=== PATIENT | female | born 1945 | race Caucasian/White ===

== ENCOUNTER → 2018-09-13 | Day surgery (SDC) | payer MEDICARE ==
[~2018-09-13] VITALS: Ht 154.9 cm; Wt 84.8 kg
[~2018-09-13] MED LIST: ANTIVERT/2525 MG PO; ASPI-COR81 M1 PO; ASPIRIN325 MG PO; COZAAR50 M1 PO; DIPYRIDAMOLE25 MG PO; DULCOLAX STOOL100 MG PO; FISH OIL CONC1000 M1 PO; FLUTICASON0.05 MG/Ac NS; LOPRESSOR50 MG PO; MULTIVITAMIN FO1 CAP PO; OMEPRAZOLE D/R20 MG PO; PLAVIX75 M1 PO; SIMVASTATIN10 MG PO; SYNTHROID0.025 MG PO; VICO75300 PO; VITAMIN D1000 IU PO; XANAX0.5 MG PO; ZYRTEC10 MG PO
--- NOTE | ~2018-09-13 | O ---
[place], [place] OPERATIVE NOTE NAME: ABDIAS MADERA UNIT #: [id number] ROOM: DOCTOR: JIMMY CASON MD BIRTHDATE: [birth year] DOS: 09/13/2018 HISTORY OF PRESENT ILLNESS: This is a 73-year-old patient who has presented with a chief complaint of guaiac positivity, undergoing investigation. The patient is on aspirin and Plavix, with cardiac valve prosthesis. PAST SURGICAL HISTORY: Cholecystectomy, aortic valve prosthesis, x 2. PAST MEDICAL HISTORY: Hypertension, hypothyroidism. ALLERGIES: GABAPENTIN, SULFA, AND CARMELA INHIBITORS. FAMILY HISTORY: Noncontributory. SOCIAL HISTORY: Nonsmoker, nonalcohol consumer. PROCEDURE: Today's procedure part of investigation is panendoscopy and colonoscopy. PREMEDICATION: Propofol. SCOPE: Olympus forward-viewing gastroscope Q10 video. REPORT: After putting the patient in left lateral position and application of lubricant to the scope, the scope was introduced, thereafter under direct visualization advanced through the length of esophagus without difficulty. Gastric pouch was entered, mild gastritis was noticed. This was mostly concentrated toward the antrum, which is more moderate gastritis. Biopsy obtained. Duodenal bulb, second and third part within normal limits. Antral biopsy was obtained. Air was suctioned out. The patient was extubated, tolerated the procedure well. IMPRESSION: Gastritis. PLAN AND DISCUSSION: The patient is already on omeprazole 20 mg daily. The patient on the other hand has been on fish oil, Plavix, and aspirin 325 mg daily. This could have contributed to her guaiac positivity possibly. We are going to proceed with colonoscopic evaluation today. INDICATIONS: The patient has presented with guaiac positivity, undergoing investigation. PROCEDURE #2: Today's procedure part of investigation is colonoscopy plus polypectomy plus photographic series. PREMEDICATION: Propofol. SCOPE: Olympus forward-viewing colonoscope 10L video. REPORT: After putting the patient in left lateral position and application of [place], [place] OPERATIVE NOTE NAME: ABDIAS MADERA UNIT #: [id number] ROOM: [facility] [birth year] lubricant to the scope, the scope was introduced, thereafter under direct visualization advanced through the length of colon without difficulty. Base of the cecum explored, appendiceal orifice identified, ileocecal valve was defined. Tortuosity of colon, particularly at the left colon was appreciated. Scope was gradually withdrawn from ascending, transverse, descending colon. A polypoid lesion in high rectal pouch with piecemeal polypectomy was removed. Air was suctioned out. The patient was extubated, tolerated the procedure well. IMPRESSION: Tortuous colon, otherwise high rectal pouch sessile polyp status post piecemeal polypectomy. PLAN AND DISCUSSION: The patient may start Plavix and aspirin and fish oil from tomorrow. No acute source for blood loss, guaiac positivity was noticed. Most likely, presence of the fish oil, aspirin and Plavix has led to superficial mucosal abrasions and guaiac positivity has been noticed in view of the gastritis. Continuation of omeprazole. Continuation of all the medications. Regular diet. Otherwise, follow up routinely with you in office p.r.n., visit with us in GI Clinic. Thank you very much indeed for your kind referral. JIMMY CASON MD CM:OPRECORD:OPERATIVE NOTE [id number] JIMMY CASON MD 09/13/18 1442 interface
[2018-09-13 11:00] VITALS: BP 111/64
[2018-09-13 13:26] VITALS: BP 140/50
[2018-09-13 13:41] VITALS: BP 160/41
[2018-09-13 13:56] VITALS: BP 148/78
== END | disposition home or self-care (01) ==
LOC: SDC 09-10 11:00
DX: K62.1 Rectal polyp (principal); K63.89 Other specified diseases of intestine; K29.50 Unspecified chronic gastritis without bleeding; K21.9 Gastro-esophageal reflux disease without esophagitis; I10 Essential (primary) hypertension; E03.9 Hypothyroidism, unspecified; E78.00 Pure hypercholesterolemia, unspecified; E66.09 Other obesity due to excess calories; Z90.49 Acquired absence of other specified parts of digestive tract; Z98.890 Other specified postprocedural states; Z79.01 Long term (current) use of anticoagulants; Z95.2 Presence of prosthetic heart valve; Z88.2 Allergy status to sulfonamides; Z88.8 Allergy status to other drugs, medicaments and biological substances; Z79.899 Other long term (current) drug therapy; Z86.73 Personal history of transient ischemic attack (TIA), and cerebral infarction without residual deficits; Z68.35 Body mass index [BMI] 35.0-35.9, adult

== ENCOUNTER → 2020-02-02 | Outpatient (CLI) | payer MEDICARE ==
[~2020-02-02] MED LIST changes: +ASPIRIN CHEWABL81 MG PO; -ASPIRIN325 MG PO; +OMEPRAZOLE20 M2 PO; +PREDNISONE5 MG PO; +SYNTHROID25 MCG PO; +ZYRTEC10 M3 PO; -ZYRTEC10 MG PO
== END | disposition home or self-care (01) ==
LOC: CT 12:57
DX: R91.1 Solitary pulmonary nodule (principal)

== ENCOUNTER 2020-02-04 10:29 | Inpatient (IN) | payer MEDICARE ==
[~2020-02-04] VITALS: Ht 154.9 cm; Wt 83.9 kg
[~2020-02-04 10:29] MED LIST changes: -OMEPRAZOLE20 M2 PO; -PREDNISONE5 MG PO; -SYNTHROID25 MCG PO
[2020-02-04 10:35] VITALS: BP 162/62
[2020-02-04 11:38] VITALS: BP 180/64
--- NOTE | 2020-02-04 11:45 | NUR ---
PATIENT RATES TIGHTNESS IN LOWER CHEST A 5/10. NITRO GIVEN PRESSURE IS 180/64 MANUALLY. PATIENT WAS CO LOWER CHEST DISCOMFORT, SOB, HEADACHE, AND UPPER JAW PAIN. STATES THAT THE PAIN IS RADIATING INTO HER MIDDLE BACK FROM BOTH SIDES. DR MUÑOZ NOTIFIED. EKG ORDERED AND DONE AT BEDSIDE ALSO.
--- NOTE | 2020-02-04 11:49 | NUR ---
PATIENT STATES NITRO RELIEVED HER JAW AND LOWER CHEST PAIN. RATES PAIN 0/10.
[2020-02-04 12:00] LABS: BASO % 0.2 % (0.0-1.0); EOS # 0.1 10*3/uL (0.0-0.4); EOS % 0.6 % (1.0-4.0); HEMATOCRIT 43.8 % (37.0-47.0); HEMOGLOBIN 14.4 g/dl (12.0-16.0); LYMPH # 2.2 10*3/uL (1.3-4.4); LYMPH % 17.9 % (27.0-41.0); MEAN CELL VOLUME 95.6 fl (81.0-99.0); MEAN CORPUSCULAR HGB 31.4 pg (27.0-31.0); MEAN CORPUSCULAR HGB CONC 32.9 g/dl (33.0-37.0); MEAN PLATELET VOLUME 10.6 fl (9.6-12.3); MONO # 1.1 10*3/uL (0.1-1.0); NEUT # 8.9 10*3/uL (2.3-7.9); NEUT % 71.9 % (47.0-73.0); PLATELET COUNT AUTOMATED 183 10*3/uL (130-400); RED BLOOD COUNT 4.58 10*6/uL (4.10-5.10); RED CELL DISTRI WIDTH 12.9 % (0-14.5); WHITE BLOOD COUNT 12.4 10*3/uL (4.8-10.8)
[2020-02-04 12:13] LABS: ALBUMIN 3.5 gm/dl (3.1-4.5); ALKALINE PHOSPHATASE 126 U/L (45-117); BUN 17 mg/dl (7-24); CHLORIDE 100 mmol/L (98-107); CREATININE 0.78 mg/dL (0.55-1.02); POTASSIUM 4.8 mmol/L (3.5-5.1); SGOT/AST 44 IU/L (3-35); SGPT/ALT 59 U/L (12-78); SODIUM 134 mmol/L (136-145); TOTAL PROTEIN 7.6 gm/dL (6.4-8.2)
[2020-02-04 13:45] VITALS: BP 168/78
[2020-02-04 13:59] VITALS: BP 159/61
--- NOTE | 2020-02-04 14:00 | NUR ---
CCA 74, admitted to , under the services of RICARDO Alston MD with a diagnosis of CHEST PAIN. Chief complaint is CHEST PAIN. Patient arrived via bed from ER. Monitor applied. Initial assessment completed. Vital signs taken and recorded. RICARDO ALSTON MD notified of admission to the unit. Orders received. See assessment for past medical history, medications and allergies. Patient and/or family oriented to unit. [facility] visitation policy reviewed. Clothing/patient valuable form completed. LILLIAN DURAN.
[2020-02-04] MEDS ORDERED: SYNTHROID25 MCG PO (14:21)
[2020-02-04] MEDS ORDERED: PREDNISONE5 MG PO (14:23)
[2020-02-04 16:00] VITALS: BP 157/53
[2020-02-04 20:00] VITALS: BP 159/69
[2020-02-05] VITALS: BP 148/49
[2020-02-05 08:00] VITALS: BP 144/76
[2020-02-05 12:00] VITALS: BP 152/48
--- NOTE | 2020-02-05 12:06 | NUR ---
Rn Labor And Delivery in to talk to patient. Patient states lives at HOME with . There are NO steps in the home. Physician: Ned BRASHER Pharmacy: [facility] services: NONE Patient's level of ADLs: INDEPENDENT Patient has working utilities: YES DME: NONE Follow-up physician's appointment after d/c: PREFERS TO MAKE OWN ON DISCHARGE Does patient want to access PORTAL?: NO Discharge plan PT LIVES AT HOME WITH HER AND IS INDEPENDENT IN HER CARE. DENIES SHE WILL HAVE ANY NEEDS ON DISCHARGE. PLAN IS TO RETURN HOME WHEN MEDICALLY STABLE. WILL CONTINUE TO FOLLOW. STATES HER WILL TAKE HER HOME. . SINAN WORTHY
--- NOTE | 2020-02-05 12:44 | NUR ---
CALLED REGARDING SINUS TACHYCARDIA. HR 120'S AT REST. FACE FLUSHED. PATIENT STATES SHE FEELS JITTERY. NEW ORDERS RECEIVED.
--- NOTE | 2020-02-05 14:21 | NUR ---
HR NOW LOW 100'S. WILL CONTINUE TO MONITOR. IVF INITIATED PER ORDER.
[2020-02-05 16:00] VITALS: BP 174/55
--- NOTE | 2020-02-05 18:35 | NUR ---
NOTIFIED REGARDING ELEVATED BP. STATES TO RECHECK IN 1 HOUR AND IF STILL ELEVATED TO GIVE NORVASC 2.5MG DAILY.
[2020-02-05 19:55] VITALS: BP 152/62
--- NOTE | 2020-02-05 23:46 | NUR ---
24 HOUR CHART CHECK COMPLETED
[2020-02-06] VITALS: BP 157/49
[2020-02-06 08:00] VITALS: BP 162/50
--- NOTE | 2020-02-06 08:51 | NUR ---
TOOK OVER CARE OF PT AT THIS TIME. PT RESTING IN BED. ALERT ORIENTED AND PLEASANT MOOD. RESPIRATIONS EASY AND UNLABORED. IV FLUIDS INFUSING PER ORDERS. NO COMPLAINTS. WILL CONTINUE TO MONITOR. CALL LIGHT IN REACH.
[2020-02-06] MEDS ORDERED: OMEPRAZOLE20 M2 PO (09:56)
--- NOTE | 2020-02-06 10:52 | NUR ---
DR BRASHER NOTIFIED OF PT BLOOD PRESSURE AND GIVES OKAY TO CHANGE THE TIMES OF PT COZAAR AND FREQUENCY OF PRILOSEC. WILL NOTIFY PT AND RECHECK PT BLOOD PRESSURE.
[2020-02-06 12:00] VITALS: BP 151/51
--- NOTE | 2020-02-06 12:09 | NUR ---
PT WILL RETURN HOME WITH NO NEEDS WHEN MEDICALLY STABLE.
[2020-02-06 15:08] LABS: MYCOPLASMA PNEUMONIAE IGG 524 U/mL (0-99); MYCOPLASMA PNEUMONIAE IGM <770 U/mL (0-769)
[2020-02-06 16:00] VITALS: BP 132/59
[2020-02-06 20:00] VITALS: BP 136/58
[2020-02-07] VITALS: BP 135/52
--- NOTE | 2020-02-07 07:30 | NUR ---
TOOK OVER CARE OF PT. PT RESTING IN BED. RESPIRATIONS EASY AND UNLABORED. NO S/S OF DISTRESS. NO COMPLAINTS VOICED. CALL LIGHT IN REACH.
[2020-02-07] MEDS ORDERED: TAMIFLU 75MG CA75 MG PO (08:01)
[2020-02-07] MEDS ORDERED: ZITHROMAX TRI-500 M1 PO (08:01)
[2020-02-07] MEDS ORDERED: DOXYCYCLINE100 M3 PO (08:01)
--- NOTE | 2020-02-07 09:34 | NUR ---
Discharge instructions reviewed with patient/family. Patient receptive and verbalizes understanding. Follow-up care arranged. Written instructions given to patient/family. MARIA GUADALUPE NOVA
--- NOTE | 2020-02-07 10:09 | NUR ---
PT LEAVES FACILITY AT THIS TIME VIA W/C ASSISTED BY PATIENT ATTENDANT. WAITING ON PATIENT IN ER PARKING LOT IN CAR. PT ASSISTED TO CAR BY PATIENT ATTENDANT.
== END 2020-02-07 10:09 | disposition home or self-care (01) | DRG 195 ==
LOC: ED 10:29 → EDHOLD 12:34 → 4E 12:34
PROVIDERS: Emergency Medicine; ADMIT Internal Medicine
DX: J12.9 Viral pneumonia, unspecified (principal); I10 Essential (primary) hypertension; F41.9 Anxiety disorder, unspecified; G89.29 Other chronic pain; E78.2 Mixed hyperlipidemia; R00.0 Tachycardia, unspecified; Z88.8 Allergy status to other drugs, medicaments and biological substances; Z88.2 Allergy status to sulfonamides; Z79.82 Long term (current) use of aspirin; Z79.899 Other long term (current) drug therapy; Z86.73 Personal history of transient ischemic attack (TIA), and cerebral infarction without residual deficits

== ENCOUNTER 2021-03-26 08:18 | Inpatient (IN) | payer MEDICARE ==
[~2021-03-26] VITALS: Ht 154.9 cm; Wt 87.1 kg
[~2021-03-26 08:18] MED LIST changes: +DOXYCYCLINE100 M3 PO; +OMEPRAZOLE20 M2 PO; +PREDNISONE5 MG PO; +SYNTHROID25 MCG PO; +TAMIFLU 75MG CA75 MG PO; +ZITHROMAX TRI-500 M1 PO
[2021-03-26 08:26] VITALS: BP 150/78
[2021-03-26 10:14] LABS: BASO # 0.1 10*3/uL (0.0-0.1); BASO % 0.4 % (0.0-1.0); EOS # 0.1 10*3/uL (0.0-0.4); EOS % 0.7 % (1.0-4.0); HEMATOCRIT 37.8 % (37.0-47.0); LYMPH # 2.1 10*3/uL (1.3-4.4); LYMPH % 17.9 % (27.0-41.0); MEAN CELL VOLUME 93.1 fl (81.0-99.0); MEAN CORPUSCULAR HGB CONC 32.3 g/dl (33.0-37.0); MONO # 0.9 10*3/uL (0.1-1.0); MONO % 7.9 % (3.0-9.0); NEUT # 8.7 10*3/uL (2.3-7.9); NEUT % 72.8 % (47.0-73.0); PLATELET COUNT AUTOMATED 229 10*3/uL (130-400); RED BLOOD COUNT 4.06 10*6/uL (4.10-5.10); RED CELL DISTRI WIDTH 12.5 % (0-14.5); WHITE BLOOD COUNT 11.9 10*3/uL (4.8-10.8)
[2021-03-26 10:24] LABS: ACT PARTIAL THROMBO TIME 23.3 SECONDS (20.0-32.1)
[2021-03-26 10:27] LABS: BUN 17 mg/dl (7-24); CHLORIDE 109 mmol/L (98-107); CREATININE 0.73 mg/dL (0.55-1.02); POTASSIUM 4.2 mmol/L (3.5-5.1); SODIUM 140 mmol/L (136-145)
[2021-03-26 12:04] VITALS: BP 176/54
[2021-03-26 12:45] VITALS: BP 175/64
[2021-03-26 13:11] VITALS: BP 143/72
[2021-03-26 16:00] VITALS: BP 133/81
[2021-03-26 20:10] VITALS: BP 151/46
[2021-03-27] VITALS (10 sets, daily range): BP systolic 146–186; BP diastolic 39–58
[2021-03-28] VITALS: BP 145/38
[2021-03-28 08:09] VITALS: BP 142/46
[2021-03-28 12:01] VITALS: BP 162/41
[2021-03-28 15:54] VITALS: BP 142/39
[2021-03-28 20:00] VITALS: BP 163/52
[2021-03-29] VITALS: BP 134/36
[2021-03-29] MEDS ORDERED: AUGMENTIN 875875 MG PO (08:12)
[2021-03-29 08:14] VITALS: BP 145/43
== END 2021-03-29 11:45 | disposition home health service (06) | DRG 572 ==
LOC: ED 08:18 → EDHOLD 10:04 → 5E 10:04
PROVIDERS: Emergency Medicine; ADMIT Internal Medicine; ATTEND Internal Medicine
PROC: 0JBN0ZZ Excision of Right Lower Leg Subcutaneous Tissue and Fascia, Open Approach (ICD-10-PCS; principal; 2021-03-27)
DX: S81.811A Laceration without foreign body, right lower leg, initial encounter (principal); I10 Essential (primary) hypertension; W01.0XXA Fall on same level from slipping, tripping and stumbling without subsequent striking against object, initial encounter; Y93.89 Activity, other specified; Y92.89 Other specified places as the place of occurrence of the external cause; Y99.8 Other external cause status; Z88.8 Allergy status to other drugs, medicaments and biological substances; Z88.2 Allergy status to sulfonamides; Z86.73 Personal history of transient ischemic attack (TIA), and cerebral infarction without residual deficits; Z95.2 Presence of prosthetic heart valve; Z90.49 Acquired absence of other specified parts of digestive tract; Z90.710 Acquired absence of both cervix and uterus; Z98.891 History of uterine scar from previous surgery; Z79.899 Other long term (current) drug therapy; Z79.82 Long term (current) use of aspirin

== ENCOUNTER → 2021-04-05 | Outpatient (CLI) | payer MEDICARE ==
[~2021-04-05] MED LIST changes: +AUGMENTIN 875875 MG PO
== END ==
LOC: WOUNDCARE 01:22
PROVIDERS: ATTEND Nurse Practitioner
DX: T81.89XA Other complications of procedures, not elsewhere classified, initial encounter (principal); K21.9 Gastro-esophageal reflux disease without esophagitis; Z86.73 Personal history of transient ischemic attack (TIA), and cerebral infarction without residual deficits; Z79.899 Other long term (current) drug therapy; Y83.8 Other surgical procedures as the cause of abnormal reaction of the patient, or of later complication, without mention of misadventure at the time of the procedure; Y92.238 Other place in hospital as the place of occurrence of the external cause

== ENCOUNTER → 2021-04-12 | Outpatient (CLI) | payer MEDICARE | LOC: WOUNDCARE 00:56 | PROVIDERS: ATTEND Surgery | DX: T81.89XD Other complications of procedures, not elsewhere classified, subsequent encounter (principal); K21.9 Gastro-esophageal reflux disease without esophagitis; Z86.73 Personal history of transient ischemic attack (TIA), and cerebral infarction without residual deficits; Z79.899 Other long term (current) drug therapy; Y83.8 Other surgical procedures as the cause of abnormal reaction of the patient, or of later complication, without mention of misadventure at the time of the procedure ==

== ENCOUNTER → 2021-04-19 | Outpatient (CLI) | payer MEDICARE | LOC: WOUNDCARE 01:05 | PROVIDERS: ATTEND Nurse Practitioner | DX: T81.89XD Other complications of procedures, not elsewhere classified, subsequent encounter (principal); K21.9 Gastro-esophageal reflux disease without esophagitis; Z86.73 Personal history of transient ischemic attack (TIA), and cerebral infarction without residual deficits; Z79.899 Other long term (current) drug therapy; Z95.3 Presence of xenogenic heart valve; Y83.8 Other surgical procedures as the cause of abnormal reaction of the patient, or of later complication, without mention of misadventure at the time of the procedure ==

== ENCOUNTER → 2021-04-26 | Outpatient (CLI) | payer MEDICARE | LOC: WOUNDCARE 01:45 | PROVIDERS: ATTEND Nurse Practitioner | DX: T81.89XD Other complications of procedures, not elsewhere classified, subsequent encounter (principal); S81.801D Unspecified open wound, right lower leg, subsequent encounter; K21.9 Gastro-esophageal reflux disease without esophagitis; Z86.73 Personal history of transient ischemic attack (TIA), and cerebral infarction without residual deficits; Z79.899 Other long term (current) drug therapy; Z95.3 Presence of xenogenic heart valve; X58.XXXD Exposure to other specified factors, subsequent encounter; Y83.8 Other surgical procedures as the cause of abnormal reaction of the patient, or of later complication, without mention of misadventure at the time of the procedure ==

== ENCOUNTER → 2021-05-03 | Outpatient (CLI) | payer MEDICARE | LOC: WOUNDCARE 01:28 | PROVIDERS: ATTEND Surgery | DX: T81.89XD Other complications of procedures, not elsewhere classified, subsequent encounter (principal); S81.801D Unspecified open wound, right lower leg, subsequent encounter; K21.9 Gastro-esophageal reflux disease without esophagitis; Z86.73 Personal history of transient ischemic attack (TIA), and cerebral infarction without residual deficits; Z79.899 Other long term (current) drug therapy; Z95.3 Presence of xenogenic heart valve; X58.XXXD Exposure to other specified factors, subsequent encounter; Y83.8 Other surgical procedures as the cause of abnormal reaction of the patient, or of later complication, without mention of misadventure at the time of the procedure ==

== ENCOUNTER → 2021-05-10 | Outpatient (CLI) | payer MEDICARE | LOC: WOUNDCARE 03:04 | PROVIDERS: ATTEND Nurse Practitioner | DX: T81.89XD Other complications of procedures, not elsewhere classified, subsequent encounter (principal); S81.801D Unspecified open wound, right lower leg, subsequent encounter; Z86.73 Personal history of transient ischemic attack (TIA), and cerebral infarction without residual deficits; Z95.3 Presence of xenogenic heart valve; X58.XXXD Exposure to other specified factors, subsequent encounter; Y83.8 Other surgical procedures as the cause of abnormal reaction of the patient, or of later complication, without mention of misadventure at the time of the procedure ==

== ENCOUNTER → 2021-05-17 | Outpatient (CLI) | payer MEDICARE | LOC: WOUNDCARE 01:36 | PROVIDERS: ATTEND Nurse Practitioner | DX: T81.89XD Other complications of procedures, not elsewhere classified, subsequent encounter (principal); S81.801D Unspecified open wound, right lower leg, subsequent encounter; Z86.73 Personal history of transient ischemic attack (TIA), and cerebral infarction without residual deficits; Z95.3 Presence of xenogenic heart valve; X58.XXXD Exposure to other specified factors, subsequent encounter; Y83.8 Other surgical procedures as the cause of abnormal reaction of the patient, or of later complication, without mention of misadventure at the time of the procedure ==

== ENCOUNTER → 2021-05-24 | Outpatient (CLI) | payer MEDICARE | LOC: WOUNDCARE 01:14 | PROVIDERS: ATTEND Surgery | DX: T81.89XD Other complications of procedures, not elsewhere classified, subsequent encounter (principal); S81.801D Unspecified open wound, right lower leg, subsequent encounter; Z86.73 Personal history of transient ischemic attack (TIA), and cerebral infarction without residual deficits; Z95.3 Presence of xenogenic heart valve; X58.XXXD Exposure to other specified factors, subsequent encounter; Y83.8 Other surgical procedures as the cause of abnormal reaction of the patient, or of later complication, without mention of misadventure at the time of the procedure ==

== ENCOUNTER → 2021-05-31 | Outpatient (CLI) | payer MEDICARE | LOC: WOUNDCARE 02:43 | PROVIDERS: ATTEND Surgery | DX: T81.89XD Other complications of procedures, not elsewhere classified, subsequent encounter (principal); S81.801D Unspecified open wound, right lower leg, subsequent encounter; Z86.73 Personal history of transient ischemic attack (TIA), and cerebral infarction without residual deficits; Z95.3 Presence of xenogenic heart valve; X58.XXXD Exposure to other specified factors, subsequent encounter; Y83.8 Other surgical procedures as the cause of abnormal reaction of the patient, or of later complication, without mention of misadventure at the time of the procedure ==

== ENCOUNTER → 2021-06-07 | Outpatient (CLI) | payer MEDICARE | LOC: WOUNDCARE 01:42 | PROVIDERS: ATTEND Surgery | DX: T81.89XD Other complications of procedures, not elsewhere classified, subsequent encounter (principal); S81.801D Unspecified open wound, right lower leg, subsequent encounter; Z86.73 Personal history of transient ischemic attack (TIA), and cerebral infarction without residual deficits; Z95.3 Presence of xenogenic heart valve; X58.XXXD Exposure to other specified factors, subsequent encounter; Y83.8 Other surgical procedures as the cause of abnormal reaction of the patient, or of later complication, without mention of misadventure at the time of the procedure ==

== ENCOUNTER → 2021-06-14 | Outpatient (CLI) | payer MEDICARE | LOC: WOUNDCARE 01:29 | PROVIDERS: ATTEND Surgery | DX: T81.89XD Other complications of procedures, not elsewhere classified, subsequent encounter (principal); S81.801D Unspecified open wound, right lower leg, subsequent encounter; Z86.73 Personal history of transient ischemic attack (TIA), and cerebral infarction without residual deficits; Z95.3 Presence of xenogenic heart valve; X58.XXXD Exposure to other specified factors, subsequent encounter; Y83.8 Other surgical procedures as the cause of abnormal reaction of the patient, or of later complication, without mention of misadventure at the time of the procedure ==

== ENCOUNTER → 2021-06-21 | Outpatient (CLI) | payer MEDICARE | LOC: WOUNDCARE 01:03 | PROVIDERS: ATTEND Surgery | DX: T81.89XD Other complications of procedures, not elsewhere classified, subsequent encounter (principal); S81.801D Unspecified open wound, right lower leg, subsequent encounter; Z86.73 Personal history of transient ischemic attack (TIA), and cerebral infarction without residual deficits; Z95.3 Presence of xenogenic heart valve; X58.XXXD Exposure to other specified factors, subsequent encounter ==

== ENCOUNTER → 2021-06-28 | Outpatient (CLI) | payer MEDICARE | LOC: WOUNDCARE 01:47 | PROVIDERS: ATTEND Surgery | DX: T81.89XD Other complications of procedures, not elsewhere classified, subsequent encounter (principal); S81.801D Unspecified open wound, right lower leg, subsequent encounter; L97.212 Non-pressure chronic ulcer of right calf with fat layer exposed; Z86.73 Personal history of transient ischemic attack (TIA), and cerebral infarction without residual deficits; Z95.3 Presence of xenogenic heart valve; X58.XXXD Exposure to other specified factors, subsequent encounter ==

== ENCOUNTER → 2021-07-05 | Outpatient (CLI) | payer MEDICARE | LOC: WOUNDCARE 01:21 | PROVIDERS: ATTEND Surgery | DX: T81.89XD Other complications of procedures, not elsewhere classified, subsequent encounter (principal); S81.801D Unspecified open wound, right lower leg, subsequent encounter; Z86.73 Personal history of transient ischemic attack (TIA), and cerebral infarction without residual deficits; Z95.3 Presence of xenogenic heart valve; X58.XXXD Exposure to other specified factors, subsequent encounter ==

== ENCOUNTER → 2021-07-12 | Outpatient (CLI) | payer MEDICARE | LOC: WOUNDCARE 01:46 | PROVIDERS: ATTEND Nurse Practitioner | DX: T81.89XD Other complications of procedures, not elsewhere classified, subsequent encounter (principal); S81.801D Unspecified open wound, right lower leg, subsequent encounter; Z86.73 Personal history of transient ischemic attack (TIA), and cerebral infarction without residual deficits; Z95.3 Presence of xenogenic heart valve; X58.XXXD Exposure to other specified factors, subsequent encounter ==

== ENCOUNTER → 2021-07-19 | Outpatient (CLI) | payer MEDICARE | LOC: WOUNDCARE 00:39 | PROVIDERS: ATTEND Surgery | DX: T81.89XD Other complications of procedures, not elsewhere classified, subsequent encounter (principal); S81.801D Unspecified open wound, right lower leg, subsequent encounter; Z86.73 Personal history of transient ischemic attack (TIA), and cerebral infarction without residual deficits; Z95.3 Presence of xenogenic heart valve; X58.XXXD Exposure to other specified factors, subsequent encounter ==

== ENCOUNTER → 2022-04-14 | Outpatient (CLI) | payer MEDICARE | END | disposition home or self-care (01) | LOC: RAD 04-12 09:00 | PROVIDERS: ATTEND Internal Medicine | DX: M85.88 Other specified disorders of bone density and structure, other site (principal) ==

== ENCOUNTER → 2022-10-11 | Outpatient (CLI) | payer MEDICARE | END | disposition home or self-care (01) | LOC: RAD 10:04 | PROVIDERS: ATTEND Internal Medicine | DX: R92.8 Other abnormal and inconclusive findings on diagnostic imaging of breast (principal); R92.2 Inconclusive mammogram ==

== ENCOUNTER 2024-11-21 09:41 | Emergency (ER) | payer MEDICARE ==
[~2024-11-21] VITALS: Ht 154.9 cm; Wt 81.2 kg
[2024-11-21] MEDS ORDERED: DIAZEPAM 10 MG/2 ML SYR IV ONE (09:50)
[2024-11-21] MEDS ORDERED: Metoprolol Tartrate 5 MG/5 ML VIAL IV ONE (10:00)
[2024-11-21 10:08] LABS: BASO % 0.3 % (0.0-1.0); EOS # 0.2 10*3/uL (0.0-0.4); EOS % 2.4 % (1.0-4.0); HEMATOCRIT 34.9 % (37.0-47.0); MEAN CELL VOLUME 95.1 fl (81.0-99.0); MEAN CORPUSCULAR HGB 30.5 pg (27.0-31.0); MEAN CORPUSCULAR HGB CONC 32.1 g/dl (33.0-37.0); MEAN PLATELET VOLUME 10.1 fl (9.6-12.3); MONO # 0.7 10*3/uL (0.1-1.0); MONO % 7.7 % (3.0-9.0); NEUT # 6.2 10*3/uL (2.3-7.9); NEUT % 66.8 % (47.0-73.0); PLATELET COUNT AUTOMATED 249 10*3/uL (130-400); RED BLOOD COUNT 3.67 10*6/uL (4.10-5.10); RED CELL DISTRI WIDTH 13.1 % (0-14.5); WHITE BLOOD COUNT 9.3 10*3/uL (4.8-10.8)
[2024-11-21 10:32] LABS: BUN 28 mg/dl (9-23); CHLORIDE 106 mmol/L (98-107); POTASSIUM 4.9 mmol/L (3.4-5.1)
[2024-11-21] MEDS ORDERED: Diltiazem Hydrochloride 100 ML IV ONE (11:30)
[2024-11-21] MEDS ORDERED: HEPARIN SODIUM 250 ML IV ONE (11:30)
[2024-11-21] MEDS ORDERED: ASPIRIN, CHEWABLE 81 MG TAB PO ONE (11:30)
[2024-11-21] MEDS ORDERED: HEPARIN SODIUM 25,000 UNITS/250 ML BAG IV ONE (11:30)
[2024-11-21 12:03] LABS: ACT PARTIAL THROMBO TIME 25.9 SECONDS (20.0-32.1)
[2024-11-21 15:16] VITALS: BP 120/44
== END 2024-11-21 16:10 | disposition short-term general hospital (02) ==
LOC: ED 09:41
PROVIDERS: Emergency Medicine
DX: I21.4 Non-ST elevation (NSTEMI) myocardial infarction (principal); I11.0 Hypertensive heart disease with heart failure; I50.9 Heart failure, unspecified; I48.92 Unspecified atrial flutter; Z86.73 Personal history of transient ischemic attack (TIA), and cerebral infarction without residual deficits; E78.5 Hyperlipidemia, unspecified; Z88.2 Allergy status to sulfonamides; Z88.8 Allergy status to other drugs, medicaments and biological substances; Z90.49 Acquired absence of other specified parts of digestive tract; Z98.890 Other specified postprocedural states; K21.9 Gastro-esophageal reflux disease without esophagitis; E03.9 Hypothyroidism, unspecified